=== PATIENT | female | born 1965 | race Caucasian/White ===

== ENCOUNTER 2017-03-01 09:42 | Emergency (ER) | payer OTHER ==
[~2017-03-01] VITALS: Ht 165.1 cm; Wt 63.6 kg
[2017-03-01] MEDS ORDERED: LEVOTHYROXIN75 MCG PO (10:02)
[2017-03-01 10:49] LABS: INFLUENZA A NONE DETECTED (NONE DETECT); INFLUENZA B NONE DETECTED (NONE DETECT)
[2017-03-01] MEDS ORDERED: AFRIN 12 HOUR0.05 % (10:58)
[2017-03-01 11:00] VITALS: BP 149/78
== END 2017-03-01 11:00 | disposition home or self-care (01) | DRG 153 ==
LOC: ED 09:42
PROVIDERS: Emergency Medicine
DX: J06.9 Acute upper respiratory infection, unspecified (principal); F17.210 Nicotine dependence, cigarettes, uncomplicated; R50.9 Fever, unspecified; R53.1 Weakness; R05 Cough